=== PATIENT | male | born 1935 | race Caucasian/White ===

== ENCOUNTER 2018-04-24 16:15 | Inpatient (IN) ==
--- NOTE | 2018-04-24 18:25 | ED ---
HPI General Chief Complaint: Psychiatric Symptoms Stated Complaint: BLAYNE CROWE/KATHRYN SENT Time Seen by Provider: 04/24/18 17:51 Source: patient and old records reviewed Mode of arrival: ambulatory Limitations: no limitations History of Present Illness HPI Narrative: Patient is an 82-year-old male presenting voluntarily to the emergency department for psychiatric evaluation. Patient has a history of bipolar disorder, he was sent in by his primary doctor. Patient has been manic for some time. Per the notes sent from his doctor's office patient went to the office singing and talking nonstop about how he did not know if his sister was alive or . Patient then said he told her to get to the hospital. Patient was rambling and a neurologist that is not easily redirected. Patient presented voluntarily on the advice of his psychiatrist. Patient freely admits that he is bipolar and is currently manic. He has no physical complaints at this time. He denies any suicidal homicidal ideations, he further denies any hallucinations both visual and auditory. 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 He told me not to worry about his blood pressure or medical history other than his bipolar disorder. Patient is cooperative and pleasant. Related Data Home Medications Medication Instructions Recorded Confirmed nitroglycerin 0.4 mg SUBLINGUAL Q5-15M PRN 04/24/18 04/24/18 zoster vaccine live (PF) [Zostavax 04/24/18 (PF)] Previous Rx's Medication Instructions Recorded amlodipine 5 mg PO DAILY #30 tab 04/27/18 atorvastatin 80 mg PO DAILY #30 tab 04/27/18 carbamazepine 300 mg PO DIRECTED #90 tab 04/27/18 carvedilol 12.5 mg PO BID #60 tab 04/27/18 cyanocobalamin (vitamin B-12) 1,000 mcg PO DAILY #30 tab 04/27/18 [Vitamin B-12] lisinopril 20 mg PO DAILY #30 tab 04/27/18 pantoprazole 40 mg PO DAILY #30 tab 04/27/18 spironolactone 25 mg PO DAILY #30 tab 04/27/18 Allergies Allergy/AdvReac Type Severity Reaction Status Date / Time mold Allergy Unknown UNKNOWN Verified 04/24/18 17:42 Review of Systems ROS: all other systems reviewed are negative PMFSH History History Provided By: Medical Record Medical History Medical History GERD (gastroesophageal reflux disease) (Acute) Hyperlipidemia (Acute) Hypertension (Acute) Seizure (Acute) Family History Family History Other Family history non-contributory Family history normal Social History Social History Substance History: No History of Abuse Second Hand Smoke Exposure: No Smoking Status: Former smoker Tobacco Type: Cigarettes How Often Do You Have a Drink Containing Alcohol: Monthly or less Hx Recent Travel: No Exam Narrative Exam Narrative: GENERAL: Overweight, well-developed, alert pleasant elderly male. Presenting in no acute distress. SKIN: Focused skin assessment warm/dry. HEAD: Atraumatic. Normocephalic. EYES: Pupils equal and round. No scleral icterus. No injection or drainage. ENT: No nasal bleeding or discharge. Mucous membranes pink and moist. NECK: Trachea midline. No JVD. CARDIOVASCULAR: Regular rate and rhythm. No murmur appreciated. RESPIRATORY: No accessory muscle use. Clear to auscultation. Breath sounds equal bilaterally. GASTROINTESTINAL: Abdomen soft, non-tender, nondistended. Hepatic and splenic margins not palpable. MUSCULOSKELETAL: No obvious deformities. No clubbing. No cyanosis. No edema. NEUROLOGICAL: Awake and alert. No obvious cranial nerve deficits. Motor grossly within normal limits. Normal speech. PSYCHIATRIC: Appropriate mood and affect; insight and judgment normal. Course Initial Documented Vital Signs Temperature 98.0 F 04/24/18 17:04 Pulse Rate 85 04/24/18 17:04 Respiratory Rate 16 04/24/18 17:04 Blood Pressure 135/105 H 04/24/18 17:04 Pulse Oximetry 94 L 04/24/18 17:04 Last Documented Vital Signs Temperature 98.3 F 04/27/18 05:46 Pulse Rate 75 04/27/18 05:46 Respiratory Rate 16 04/27/18 05:46 Blood Pressure 136/65 04/27/18 05:46 Pulse Oximetry 90 L 04/27/18 05:46 Medical Decision Making [facility] Narrative Medical decision making narrative: Patient is a well-appearing elderly male presenting voluntarily for psychiatric evaluation due to manic episode. Patient's vital signs are stable, Mental health screening discussed with the patient. Psychiatric screen ordered. The patient has been medically cleared. Medical Screen Exam Complete: Yes Emergency Medical Condition: Yes Differential Diagnosis Differential Diagnosis: Mood disorder versus psychosis versus metabolic abnormality versus other Medical Records Medical records reviewed: Yes I reviewed the patient's medical records. Lab Data Result diagrams: 04/24/18 18:39 04/25/18 06:55 Lab Results 04/24/18 04/24/18 04/24/18 Range/Units 18:39 18:39 18:39 WBC 8.0 (4.0-11.0) th/mm3 RBC 5.07 (4.50-5.90) mil/mm3 Hgb 15.0 (13.0-17.0) gm/dL Hct 45.1 (39.0-51.0) % MCV 88.9 (80.0-100.0) fL MCH 29.7 (27.0-34.0) pg MCHC 33.4 (32.0-36.0) % RDW 13.9 (11.6-17.2) % Plt Count 286 (150-450) th/mm3 MPV 8.6 (7.0-11.0) fL Neut % (Auto) 57.7 (16.0-70.0) % Lymph % (Auto) 25.3 (9.0-44.0) % Cotton % (Auto) 13.2 H (0.0-8.0) % Eos % (Auto) 2.8 (0.0-4.0) % Baso % (Auto) 1.0 (0.0-2.0) % Neut # (Auto) 4.6 (1.8-7.7) th/mm3 Lymph # (Auto) 2.0 (1.0-4.8) th/mm3 Cotton # (Auto) 1.1 H (0.0-0.9) th/mm3 Eos # (Auto) 0.2 (0.0-0.4) th/mm3 Baso # (Auto) 0.1 (0.0-0.2) th/mm3 WBC Differential . Differential Comment Auto diff final Sodium 139 (136-145) meq/L Potassium 4.4 (3.5-5.1) meq/L Chloride 104 (98-107) meq/L Carbon Dioxide 28.5 (21.0-32.0) meq/L Anion Gap 7 (5-15) meq/L BUN 17 (7-18) mg/dL Creatinine 1.23 (0.60-1.30) mg/dL Estimated GFR 57 L (>89) mL/min Random Glucose 95 (74-106) mg/dL Hemoglobin A1c (4.3-6.0) % Calcium 9.3 (8.5-10.1) mg/dL Total Bilirubin 0.3 (0.2-1.0) mg/dL AST 28 (15-37) U/L ALT 32 (12-78) U/L Alkaline Phosphatase 123 H (45-117) U/L Total Protein 7.4 (6.4-8.2) g/dL Albumin 3.7 (3.4-5.0) g/dL Triglycerides (42-150) mg/dL Cholesterol (120-200) mg/dL LDL Cholesterol, Calc (0-99) mg/dL HDL Cholesterol (40.0-60.0) mg/dL Cholesterol/HDL Ratio Ratio TSH 1.510 (0.358-3.740) uIU/mL Urine Color (Yellw/Straw) Urine Clarity (Clear) Urine pH (5.0-8.5) Ur Specific [place] (1.002-1.035) Urine Protein (Neg-Trace) mg/dL Urine Glucose (UA) (Negative) mg/dL Urine Ketones (Negative) mg/dL Urine Occult Blood (Negative) Urine Nitrate (Negative) Urine Bilirubin (Negative) Urine Urobilinogen (Less than 2) mg/dL Ur Leukocyte Esterase (Negative) Urine RBC (0-3) /hpf Urine WBC (0-5) /hpf Urine Mucus (Occasional) /lpf Micro UA Comment Ur Microscopic Review Urine Culture Comments Urine Opiates Screen (Neg) Ur Barbiturates Screen (Neg) Carbamazepine 4.2 (4.0-12.0) mcg/mL Ur Amphetamines Screen (Neg) U Benzodiazepines Scrn (Neg) Urine Cocaine Screen (Neg) U Cannabinoids Screen (Neg) Serum Alcohol Less than 3 (0-5) mg/dL 04/24/18 04/24/18 04/25/18 Range/Units 18:43 18:43 06:55 WBC (4.0-11.0) th/mm3 RBC (4.50-5.90) mil/mm3 Hgb (13.0-17.0) gm/dL Hct (39.0-51.0) % MCV (80.0-100.0) fL MCH (27.0-34.0) pg MCHC (32.0-36.0) % RDW (11.6-17.2) % Plt Count (150-450) th/mm3 MPV (7.0-11.0) fL Neut % (Auto) (16.0-70.0) % Lymph % (Auto) (9.0-44.0) % Cotton % (Auto) (0.0-8.0) % Eos % (Auto) (0.0-4.0) % Baso % (Auto) (0.0-2.0) % Neut # (Auto) (1.8-7.7) th/mm3 Lymph # (Auto) (1.0-4.8) th/mm3 Cotton # (Auto) (0.0-0.9) th/mm3 Eos # (Auto) (0.0-0.4) th/mm3 Baso # (Auto) (0.0-0.2) th/mm3 WBC Differential Differential Comment Sodium 139 (136-145) meq/L Potassium 4.2 (3.5-5.1) meq/L Chloride 105 (98-107) meq/L Carbon Dioxide 24.4 (21.0-32.0) meq/L Anion Gap 10 (5-15) meq/L BUN 14 (7-18) mg/dL Creatinine 1.03 (0.60-1.30) mg/dL Estimated GFR 69 L (>89) mL/min Random Glucose 116 H (74-106) mg/dL Hemoglobin A1c (4.3-6.0) % Calcium 8.9 (8.5-10.1) mg/dL Total Bilirubin 0.3 (0.2-1.0) mg/dL AST 33 (15-37) U/L ALT 33 (12-78) U/L Alkaline Phosphatase 127 H (45-117) U/L Total Protein 7.6 (6.4-8.2) g/dL Albumin 3.8 (3.4-5.0) g/dL Triglycerides 158 H (42-150) mg/dL Cholesterol 209 H (120-200) mg/dL LDL Cholesterol, Calc 130 H (0-99) mg/dL HDL Cholesterol 47.8 (40.0-60.0) mg/dL Cholesterol/HDL Ratio 4.37 Ratio TSH (0.358-3.740) uIU/mL Urine Color Yellow (Yellw/Straw) Urine Clarity Clear (Clear) Urine pH 6.0 (5.0-8.5) Ur Specific [place] 1.010 (1.002-1.035) Urine Protein Negative (Neg-Trace) mg/dL Urine Glucose (UA) Negative (Negative) mg/dL Urine Ketones Negative (Negative) mg/dL Urine Occult Blood Negative (Negative) Urine Nitrate Negative (Negative) Urine Bilirubin Negative (Negative) Urine Urobilinogen Less than 2 (Less than 2) mg/dL Ur Leukocyte Esterase Negative (Negative) Urine RBC Less than 1 (0-3) /hpf Urine WBC Less than 1 (0-5) /hpf Urine Mucus Few H (Occasional) /lpf Micro UA Comment Culture not ind Ur Microscopic Review Not Reportable Urine Culture Comments Culture not ind Urine Opiates Screen Neg (Neg) Ur Barbiturates Screen Neg (Neg) Carbamazepine (4.0-12.0) mcg/mL Ur Amphetamines Screen Neg (Neg) U Benzodiazepines Scrn Neg (Neg) Urine Cocaine Screen Neg (Neg) U Cannabinoids Screen Pos H (Neg) Serum Alcohol (0-5) mg/dL 04/25/18 04/26/18 Range/Units 06:55 04:46 WBC (4.0-11.0) th/mm3 RBC (4.50-5.90) mil/mm3 Hgb (13.0-17.0) gm/dL Hct (39.0-51.0) % MCV (80.0-100.0) fL MCH (27.0-34.0) pg MCHC (32.0-36.0) % RDW (11.6-17.2) % Plt Count (150-450) th/mm3 MPV (7.0-11.0) fL Neut % (Auto) (16.0-70.0) % Lymph % (Auto) (9.0-44.0) % Cotton % (Auto) (0.0-8.0) % Eos % (Auto) (0.0-4.0) % Baso % (Auto) (0.0-2.0) % Neut # (Auto) (1.8-7.7) th/mm3 Lymph # (Auto) (1.0-4.8) th/mm3 Cotton # (Auto) (0.0-0.9) th/mm3 Eos # (Auto) (0.0-0.4) th/mm3 Baso # (Auto) (0.0-0.2) th/mm3 WBC Differential Differential Comment Sodium (136-145) meq/L Potassium (3.5-5.1) meq/L Chloride (98-107) meq/L Carbon Dioxide (21.0-32.0) meq/L Anion Gap (5-15) meq/L BUN (7-18) mg/dL Creatinine (0.60-1.30) mg/dL Estimated GFR (>89) mL/min Random Glucose (74-106) mg/dL Hemoglobin A1c 6.3 H (4.3-6.0) % Calcium (8.5-10.1) mg/dL Total Bilirubin (0.2-1.0) mg/dL AST (15-37) U/L ALT (12-78) U/L Alkaline Phosphatase (45-117) U/L Total Protein (6.4-8.2) g/dL Albumin (3.4-5.0) g/dL Triglycerides (42-150) mg/dL Cholesterol (120-200) mg/dL LDL Cholesterol, Calc (0-99) mg/dL HDL Cholesterol (40.0-60.0) mg/dL Cholesterol/HDL Ratio Ratio TSH (0.358-3.740) uIU/mL Urine Color (Yellw/Straw) Urine Clarity (Clear) Urine pH (5.0-8.5) Ur Specific [place] (1.002-1.035) Urine Protein (Neg-Trace) mg/dL Urine Glucose (UA) (Negative) mg/dL Urine Ketones (Negative) mg/dL Urine Occult Blood (Negative) Urine Nitrate (Negative) Urine Bilirubin (Negative) Urine Urobilinogen (Less than 2) mg/dL Ur Leukocyte Esterase (Negative) Urine RBC (0-3) /hpf Urine WBC (0-5) /hpf Urine Mucus (Occasional) /lpf Micro UA Comment Ur Microscopic Review Urine Culture Comments Urine Opiates Screen (Neg) Ur Barbiturates Screen (Neg) Carbamazepine 5.3 (4.0-12.0) mcg/mL Ur Amphetamines Screen (Neg) U Benzodiazepines Scrn (Neg) Urine Cocaine Screen (Neg) U Cannabinoids Screen (Neg) Serum Alcohol (0-5) mg/dL Discharge Plan Discharge Disposition Patient Disposition: 01 Discharge Home Discharge Condition Condition: Fair Discharge Order Discharge Orders: Discharge Order (Routine); Ordered 04/27/18 Ordered By: Benson Holcomb Discharge Details Anticipated Discharge Date: 04/27/18 Physicians Team ED Provider: Marcial Suárez ED Midlevel Provider: Shruti Quintero Primary Care Provider: Ingrid Chapa Attending Provider: Benson Holcomb Status ED Status: Left Department Discharge Information Discharge Date/Time: 04/24/18 21:06
[2018-04-24 18:58] LABS: Baso # (Auto) 0.1 th/mm3 (0.0-0.2); Eos # (Auto) 0.2 th/mm3 (0.0-0.4); Eos % (Auto) 2.8 % (0.0-4.0); Hematocrit 45.1 % (39.0-51.0); Lymph % (Auto) 25.3 % (9.0-44.0); Mean Corpuscular HGB Conc 33.4 % (32.0-36.0); Mean Corpuscular Hemoglobin 29.7 pg (27.0-34.0); Mean Corpuscular Volume 88.9 fL (80.0-100.0); Mean Platelet Volume 8.6 fL (7.0-11.0); Mono # (Auto) 1.1 th/mm3 (0.0-0.9); Mono % (Auto) 13.2 % (0.0-8.0); Neut # (Auto) 4.6 th/mm3 (1.8-7.7); Neut % (Auto) 57.7 % (16.0-70.0); Platelet Count 286 th/mm3 (150-450); Red Blood Count 5.07 mil/mm3 (4.50-5.90); Red Cell Distribution Width 13.9 % (11.6-17.2)
[2018-04-24 19:07] LABS: Bilirubin,Urine Negative (Negative); Clarity,Urine Clear (Clear); Color,Urine Yellow (Yellw/Straw); Glucose,Urine (UA) Negative (Negative); Leukocyte Esterase,Urine Negative (Negative); Mucus,Urine Few /lpf (Occasional); Nitrite,Urine Negative (Negative)
[2018-04-24 19:23] LABS: Albumin 3.7 g/dL (3.4-5.0); Anion Gap 7 meq/L (5-15); Aspartate Aminotransferase 28 U/L (15-37); Blood Urea Nitrogen 17 mg/dL (7-18); Calcium 9.3 mg/dL (8.5-10.1); Carbon Dioxide 28.5 meq/L (21.0-32.0); Chloride 104 meq/L (98-107); Glomerular Filtration Rate 57 mL/min (>89); Glucose,Random 95 mg/dL (74-106); Potassium 4.4 meq/L (3.5-5.1); Sodium 139 meq/L (136-145)
[2018-04-24 19:34] LABS: Alanine Aminotransferase 32 U/L (12-78); Alkaline Phosphatase 123 U/L (45-117); Total Protein 7.4 g/dL (6.4-8.2)
[2018-04-24] MEDS ORDERED: Aluminum/Magnesium/Simethacone Susp 30 ML UDC PO PRN (20:14)
[2018-04-24] MEDS ORDERED: Melatonin 5 MG Tablet PO PRN (20:14)
[2018-04-24] MEDS: Carvedilol 12.5 MG Tablet PO SCH (23:27)
[2018-04-24] MEDS: carBAMazepine 200 MG Tablet PO SCH (23:27)
[2018-04-25 00:30] LABS: Amphetamine Screen,Urine Neg (Neg); Barbiturate Screen,Urine Neg (Neg); Cannabinoid Screen,Urine Pos (Neg); Cocaine Screen,Urine Neg (Neg)
[2018-04-25 00:36] LABS: Opiate Screen,Urine Neg (Neg)
[2018-04-25 07:42] LABS: Albumin 3.8 g/dL (3.4-5.0); Anion Gap 10 meq/L (5-15); Aspartate Aminotransferase 33 U/L (15-37); Blood Urea Nitrogen 14 mg/dL (7-18); Calcium 8.9 mg/dL (8.5-10.1); Carbon Dioxide 24.4 meq/L (21.0-32.0); Chloride 105 meq/L (98-107); Glomerular Filtration Rate 69 mL/min (>89); Glucose,Random 116 mg/dL (74-106); Potassium 4.2 meq/L (3.5-5.1); Sodium 139 meq/L (136-145)
[2018-04-25 07:43] LABS: Cholesterol 209 mg/dL (120-200); Triglycerides 158 mg/dL (42-150)
[2018-04-25 07:47] LABS: Alanine Aminotransferase 33 U/L (12-78); Alkaline Phosphatase 127 U/L (45-117); Chol/HDL Ratio 4.37 Ratio; HDL Cholesterol 47.8 mg/dL (40.0-60.0); LDL Cholesterol,Calculated 130 mg/dL (0-99); Total Protein 7.6 g/dL (6.4-8.2)
[2018-04-25] MEDS: Carvedilol 12.5 MG Tablet PO SCH ×2 (08:27→21:02)
[2018-04-25] MEDS: Spironolactone 25 MG Tablet PO SCH (08:27)
[2018-04-25] MEDS: carBAMazepine 200 MG Tablet PO SCH ×2 (08:27→21:02)
[2018-04-25] MEDS: Lisinopril 20 MG Tablet PO SCH (08:27)
[2018-04-25] MEDS: amLODIPine 5 MG Tablet PO SCH (08:27)
[2018-04-25] MEDS ORDERED: Aluminum/Magnesium/Simethacone Susp 30 ML UDC PO PRN ×2 (13:08→13:16)
[2018-04-25] MEDS ORDERED: Bisacodyl 10 MG Supp RECTAL PRN (13:16)
--- NOTE | 2018-04-25 13:27 | P.HPPSY ---
Provisional Diagnosis Admission Date: April 24, 2018 20:13 Avilla I.: Bipolar disorder most recent episode mixed without psychosis Competence Certification of Person's Competence To Provide Express and Informed Consent I have personally examined Roque Cardoza, a person being served at [facility] on, April 25, 2018 1320. Express and informed consent means consent voluntarily given in writing, by a competent person, after sufficient explanation and disclosure of the subject matter involved to enable the person to make a knowing and willful decision without any element of force, fraud, deceit, duress, or other form of constraint or coercion. This person is 18 years of age or older, is not now known to be incompetent to consent to treatment with a guardian advocate, and does not have a health care surrogate or proxy currently making medical treatment decisions. I have found this person to be one of the following: [xxx] Competent to provide express and informed consent, as defined above, for voluntary admission to this facility and is competent to provide express and informed consent for treatment. He/she has the consistent capacity to make well reasoned, willful, and knowing decisions concerning his or her medical or mental health treatment. The person fully and consistently understands the purpose of the admission for examination/placement and is fully capable of personally exercising all rights assured under [place] Incompetent to provide express and informed consent to voluntary admission, and this is incompetent to provide express and informed consent to treatment. The person must be transferred to involuntary status and a petition for a guardian advocate filed with the Circuit Court. [] Refusing to provide express and informed consent to voluntary admission but is competent to provide express and informed consent for treatment. The person must be discharged or transferred to involuntary status. Form shall be completed within 24 hours of a person's arrival at the receiving facility and filed in the clinical record of each person: 1. Admitted on a voluntary basis 2. Permitted to provide express and informed consent to his/her own treatment 3. Allowed to transfer from involuntary to voluntary status 4. Prior to permitting a person to consent to his or her own treatment after having been previously found incompetent to consent to treatment. History of Present Illness Capacity: Has capacity History of Present Illness: Patient is an 82-year-old white male patient with [facility] seeing Dr. Julio Oneill as an outpatient clinician. It appears patient has carried a diagnosis of bipolar disorder most recently stressed when he thought that his only living sibling and a heart attack and was dying. This appears to have triggered a mixed episode of racing thoughts rapid pressured speech but also depression and anxiety. This occurred about 4 days ago. He states he has been compliant with his medications. He denies any alcohol use related to this fluid does acknowledge use of marijuana. Dr. Oneill did recommend that the patient rechecked. At [place]. Patient came here voluntarily drove himself here was assessed in the ED. Patient does denies suicidality homicidality voice or visions. He says was diagnosed bipolar in his early 30s he has had 5- 6 hospitalizations since then most recent being a number of years ago. There is some family history of bipolar disorder. He states otherwise his family is healthy. He denies any physical or sexual abuse. He states he is of a sibship of 8 there are 2 surviving himself and his sister. He has been 3 times and has 2 children. He lives by himself. 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 Tegretol level drawn yesterday at 6:40 PM was 4.2. We will recheck level in a.m. At this time patient does meet criteria for further assessment on a voluntary basis. We will recheck his Tegretol blood level of the morning otherwise we will continue medications no change. Hopeless be fairly short stay and can return to his apartment with follow-up outpatient [facility] - Inpatient Certification I certify that the inpatient services were ordered in accordance with Medicare regulations governing the order. This includes certification that hospital inpatient services are reasonable and necessary and in the case of services not specified as inpatient-only under 42 CFR 419.22(n), that they are appropriately provided as inpatient services in accordance to with the 2-midnight benchmark under 43 CFR 412.3(e) I certify that inpatient psychiatric hospital services are medically necessary. Evaluation and treatment and/or diagnostic testing are expected to improve the patient's condition. The patient needs on a daily basis, active treatment furnished directly by or requiring the supervision of inpatient psychiatric facility personnel. Estimated Total Length of Stay (Days): 7 Plans for Post Hospital Care: Not yet determined Review of Systems All other systems reviewed negative except as stated in HPI [facility] - History History Provided By: Patient - Medical History Medical History: Medical History (Last Reviewed 04/25/18 @ 08:06 by Doe Gabriel) GERD (gastroesophageal reflux disease) Hyperlipidemia Hypertension Seizure - Family History Family History: Family History (Last Updated 04/25/18 @ 13:29 by Benson Holcomb MD) Other Family history non-contributory Family history normal - Social History I have reviewed the patient's Social History: Yes - Tobacco History Second Hand Smoke Exposure: No Tobacco Use In Past 30 Days: No Smoking Status: Former smoker Tobacco Type: Cigarettes - Alcohol History How Often Do You Have a Drink Containing Alcohol: Monthly or less - Substance Use History Substance History: No History of Abuse - Travel History History of Recent Travel: No - Immunization History Tetanus Immunization: <5 Years Hx Influenza Vaccine This Season: Yes Quality Measures - Psychiatric History Psychological trauma history: Patient denies Violence risk to others in the last 6 months: Low Violence risk to self in the last 6 months: Low - Substance Abuse History Drug or alcohol use in the past 12 months: Patient regular marijuana user - Patient Strengths Patient's strengths (minimum of 2): Patient verbal able access healthcare Medications and Allergies Active Medications: Active Medications Acetaminophen (Tylenol) 650 mg PO Q4H PRN PRN Reason: Pain 1-5 or Temp >101F Al Hydrox/Mg Hydrox/Simethicone (Mag-Al Plus Susp Liq) 30 ml PO Q6H PRN PRN Reason: DYSPEPSIA Al Hydrox/Mg Hydrox/Simethicone (Mag-Al Plus Susp Liq) 30 ml PO Q6H PRN PRN Reason: DYSPEPSIA Al Hydrox/Mg Hydrox/Simethicone (Mag-Al Plus Susp Liq) 30 ml PO Q6H PRN PRN Reason: DYSPEPSIA Al Hydroxide/Mg Hydroxide (Milk Of Magnesia Liq) 30 ml PO Q12H PRN PRN Reason: Mild Constipation Al Hydroxide/Mg Hydroxide (Milk Of Magnesia Liq) 30 ml PO Q12H PRN PRN Reason: Mild Constipation Al Hydroxide/Mg Hydroxide (Milk Of Magnesia Liq) 30 ml PO Q12H PRN PRN Reason: Mild Constipation Amlodipine Besylate (Norvasc) 5 mg PO DAILY [facility] Last Admin: 04/25/18 08:27 Dose: 5 mg Atorvastatin Calcium (Lipitor) 80 mg PO DAILY [facility] Last Admin: 04/25/18 08:27 Dose: 80 mg Bisacodyl (Dulcolax Supp) 10 mg RECTAL DAILY PRN PRN Reason: SEVERE CONSITIPATION Carbamazepine (Tegretol) 200 mg PO BID [facility] Last Admin: 04/25/18 08:27 Dose: 200 mg Carvedilol (Coreg) 12.5 mg PO BID [facility] Last Admin: 04/25/18 08:27 Dose: 12.5 mg Cyanocobalamin (Vitamin B12) 1,000 mcg PO DAILY [facility] Last Admin: 04/25/18 08:27 Dose: 1,000 mcg Diphenhydramine HCl (Benadryl) 50 mg PO HS PRN PRN Reason: INSOMNIA Hydroxyzine HCl (Atarax) 50 mg PO Q6H PRN PRN Reason: ANXIETY Lactulose (Lactulose Liq) 30 ml PO DAILY PRN PRN Reason: SEVERE CONSITIPATION Lisinopril (Prinivil) 20 mg PO DAILY [facility] Last Admin: 04/25/18 08:27 Dose: 20 mg Nicotine (Habitrol 14 Mg Patch.24 Hr) 1 patch T-DERMAL DAILY PRN PRN Reason: nicotine craving Nitroglycerin (Nitrostat Sl) 0.4 mg SL Q5M PRN PRN Reason: CHEST PAIN Pantoprazole Sodium (Protonix) 40 mg PO DAILY [facility] Last Admin: 04/25/18 08:27 Dose: 40 mg Patch Removal (Remove Old Patch) 1 each T-DERMAL DAILY [facility] Last Admin: 04/25/18 08:28 Dose: 1 each Senna/Docusate Sodium (Corine-Colace) 1 tab PO BID [facility] Sennosides (Senokot) 17.2 mg PO Q12H PRN PRN Reason: Moderate Constipation Spironolactone (Aldactone) 25 mg PO DAILY [facility] Last Admin: 04/25/18 08:27 Dose: 25 mg Allergies Allergy/AdvReac Type Severity Reaction Status Date / Time mold Allergy Unknown UNKNOWN Verified 04/24/18 17:42 Home Medications Medication Instructions Recorded Confirmed Type amlodipine 5 mg PO DAILY 04/24/18 04/24/18 History [id number] 1 tab PO TID PRN 04/24/18 04/24/18 History [Excedrin Extra Strength] atorvastatin 80 mg PO DAILY 04/24/18 04/24/18 History carbamazepine 200 mg PO BID 04/24/18 04/24/18 History carvedilol 12.5 mg PO BID 04/24/18 04/24/18 History cyanocobalamin-cobamamide [B-12 1,000 mcg SUBLINGUAL DAILY 04/24/18 04/24/18 History Plus] lisinopril 20 mg PO DAILY 04/24/18 04/24/18 History nitroglycerin 0.4 mg SUBLINGUAL Q5-15M PRN 04/24/18 04/24/18 History pantoprazole 40 mg PO DAILY 04/24/18 04/24/18 History spironolactone 25 mg PO DAILY 04/24/18 04/24/18 History zoster vaccine live (PF) [Zostavax 04/24/18 History (PF)] Results - Labs CBC & Chem 7: 04/24/18 18:39 04/25/18 06:55 Labs: Laboratory Results - last 24 hr 04/24/18 04/24/18 04/24/18 18:39 18:39 18:39 WBC 8.0 RBC 5.07 Hgb 15.0 Hct 45.1 MCV 88.9 MCH 29.7 MCHC 33.4 RDW 13.9 Plt Count 286 MPV 8.6 Neut % (Auto) 57.7 Lymph % (Auto) 25.3 [place] % (Auto) 13.2 H Eos % (Auto) 2.8 Baso % (Auto) 1.0 Neut # (Auto) 4.6 Lymph # (Auto) 2.0 [place] # (Auto) 1.1 H Eos # (Auto) 0.2 Baso # (Auto) 0.1 WBC Differential . Differential Comment Auto diff final Sodium 139 Potassium 4.4 Chloride 104 Carbon Dioxide 28.5 Anion Gap 7 BUN 17 Creatinine 1.23 Estimated GFR 57 L Random Glucose 95 Calcium 9.3 Total Bilirubin 0.3 AST 28 ALT 32 Alkaline Phosphatase 123 H Total Protein 7.4 Albumin 3.7 Triglycerides Cholesterol LDL Cholesterol, Calc HDL Cholesterol Cholesterol/HDL Ratio TSH 1.510 Urine Color Urine Clarity Urine pH Ur Specific [place] Urine Protein Urine Glucose (UA) Urine Ketones Urine Occult Blood Urine Nitrate Urine Bilirubin Urine Urobilinogen Ur Leukocyte Esterase Urine RBC Urine WBC Urine Mucus Micro UA Comment Ur Microscopic Review Urine Culture Comments Urine Opiates Screen Ur Barbiturates Screen Carbamazepine 4.2 Ur Amphetamines Screen U Benzodiazepines Scrn Urine Cocaine Screen U Cannabinoids Screen Serum Alcohol Less than 3 04/24/18 04/24/18 04/25/18 18:43 18:43 06:55 WBC RBC Hgb Hct MCV MCH MCHC RDW Plt Count MPV Neut % (Auto) Lymph % (Auto) [place] % (Auto) Eos % (Auto) Baso % (Auto) Neut # (Auto) Lymph # (Auto) [place] # (Auto) Eos # (Auto) Baso # (Auto) WBC Differential Differential Comment Sodium 139 Potassium 4.2 Chloride 105 Carbon Dioxide 24.4 Anion Gap 10 BUN 14 Creatinine 1.03 Estimated GFR 69 L Random Glucose 116 H Calcium 8.9 Total Bilirubin 0.3 AST 33 ALT 33 Alkaline Phosphatase 127 H Total Protein 7.6 Albumin 3.8 Triglycerides 158 H Cholesterol 209 H LDL Cholesterol, Calc 130 H HDL Cholesterol 47.8 Cholesterol/HDL Ratio 4.37 TSH Urine Color Yellow Urine Clarity Clear Urine pH 6.0 Ur Specific [place] 1.010 Urine Protein Negative Urine Glucose (UA) Negative Urine Ketones Negative Urine Occult Blood Negative Urine Nitrate Negative Urine Bilirubin Negative Urine Urobilinogen Less than 2 Ur Leukocyte Esterase Negative Urine RBC Less than 1 Urine WBC Less than 1 Urine Mucus Few H Micro UA Comment Culture not ind Ur Microscopic Review Not Reportable Urine Culture Comments Culture not ind Urine Opiates Screen Neg Ur Barbiturates Screen Neg Carbamazepine Ur Amphetamines Screen Neg U Benzodiazepines Scrn Neg Urine Cocaine Screen Neg U Cannabinoids Screen Pos H Serum Alcohol Exam Vital signs: Vital Signs 04/24/18 17:04 04/24/18 17:35 04/24/18 20:48 Temperature 98.0 F 98.0 F Pulse Rate 85 85 97 H Respiratory Rate 16 18 Blood Pressure 135/105 H 135/105 H 121/57 L Pulse Oximetry 94 L 94 L 04/24/18 21:05 04/25/18 05:54 04/25/18 06:00 Temperature 98.6 F 97.8 F Pulse Rate 97 H 97 H Respiratory Rate 20 17 Blood Pressure 121/57 L 140/95 H Pulse Oximetry 94 L 94 L Intake & Output 04/24/18 04/25/18 04/25/18 18:59 06:59 18:59 Weight 94.347 kg 93.7 kg Other: Weight On Admission 93.7 kg Narrative: Patient sitting in its of his bed in no acute distress he is in no respiratory distress, no complaints of chest pain or abdominal pain patient using a walker is able to move all 4 extremities but legs appears somewhat weak and shaky Mental Status Examination Appearance: Appropriate Consciousness: Alert Orientation: x4 Motor Activity: Other (Patient uses walker legs appears somewhat unstable) Speech: Unremarkable, Pressured Language: Adequate Fund of Knowledge: Adequate Attention and Concentration: Adequate Memory: Unremarkable Mood: Other (Euthymic to mildly dysphoric) Affect: Other (Good range and intensity) Thought Process & Associations: Intact Thought Content: Appropriate Hallucination Type: None Delusion Type: None Suicidal Ideation: No Suicidal Plan: No Suicidal Intention: No Homicidal Ideation: No Homicidal Plan: No Homicidal Intention: No Insight: Adequate Judgment: Adequate Assessment and Plan - Assessment (1) Bipolar I disorder, most recent episode mixed Code(s): F31.60 - Bipolar disorder, current episode mixed, unspecified Status : Acute - Plan Plan: Estimated LOS: [] days At this time patient meets criteria for further observation and assessment we will recheck his Tegretol blood level in a.m. and adjust dose accordingly we have [facility] hospitalist also consult with us to monitor his medical needs condition hopeless be fairly short stay and can return to the community and follow-up outpatient [facility] Justification for Continued Inpatient Stay: At this time patient would decompensate a place to the lower level of care Discharge Planning: To be determined Request Healthcare Surrogate/Guardian Advocate?: No
[2018-04-25 16:39] LABS: Hemoglobin A1c 6.3 % (4.3-6.0)
[2018-04-25] MEDS: Acetaminophen 325 MG Tablet PO PRN (19:49)
[2018-04-25] MEDS: Senna/Docusate Sodium 8.6/50 MG Tablet PO SCH (21:02)
[2018-04-26] MEDS: Acetaminophen 325 MG Tablet PO PRN (03:52)
[2018-04-26 04:58] VITALS: RESP 16
[2018-04-26] MEDS: Lisinopril 20 MG Tablet PO SCH (08:47)
[2018-04-26] MEDS: carBAMazepine 200 MG Tablet PO SCH (08:47)
[2018-04-26] MEDS: Senna/Docusate Sodium 8.6/50 MG Tablet PO SCH ×2 (08:47→20:44)
[2018-04-26] MEDS: Spironolactone 25 MG Tablet PO SCH (08:47)
[2018-04-26] MEDS: Carvedilol 12.5 MG Tablet PO SCH ×2 (08:48→20:45)
[2018-04-26] MEDS: amLODIPine 5 MG Tablet PO SCH (08:48)
--- NOTE | 2018-04-26 11:50 | P.PNPSY ---
Subjective Remarks: Patient seen and boland with nurse Radha, chart reviewed, patient compliant medication, patient continues with mild rapid pressured speech acknowledging being somewhat elevated but enjoying it. He still has insight into the risks involved with trying to keep a somewhat hypomanic state stable Tegretol level drawn this a.m. is 5.3 and 200 mg twice daily. Will increase at bedtime dose today to 300 mg. Consider discharge tomorrow with requisition for Tegretol level first part of next week to follow-up that week with Dr. Oneill through [facility] Review of Systems All other systems reviewed negative except as stated in HPI Mental Status Examination Appearance: Appropriate Consciousness: Alert Orientation: x4 Motor Activity: Other (Patient uses walker legs appears somewhat unstable) Speech: Unremarkable, Pressured Language: Adequate Fund of Knowledge: Adequate Attention and Concentration: Adequate Memory: Unremarkable Mood: Other (Euthymic to mildly dysphoric) Affect: Other (Good range and intensity) Thought Process & Associations: Intact Thought Content: Appropriate Hallucination Type: None Delusion Type: None Suicidal Ideation: No Suicidal Plan: No Suicidal Intention: No Homicidal Ideation: No Homicidal Plan: No Homicidal Intention: No Insight: Adequate Judgment: Adequate Assessment and Plan - Assessment (1) Bipolar I disorder, most recent episode mixed Code(s): F31.60 - Bipolar disorder, current episode mixed, unspecified Status : Acute - Plan Plan: Patient's Tegretol level is somewhat low we will increase dose to 200 mg a.m. 300 mg patient denies suicidality homicidality voice or visions consider discharge tomorrow with lab follow-up next week along with follow-up psychiatric services Justification for Continued Inpatient Stay: This time patient would decompensate if placed in a lower level of care Discharge Planning: Discharge to home Request Healthcare Surrogate/Guardian Advocate?: No
[2018-04-26] MEDS ORDERED: carBAMazepine 200 MG Tablet PO SCH (21:00)
[2018-04-27 05:48] VITALS: BP 136/65; PULSE 75; TEMP 98.3; O2SAT 90
[2018-04-27] MEDS ORDERED: carBAMazepine 200 MG Tablet PO SCH (09:00)
[2018-04-27] MEDS: Spironolactone 25 MG Tablet PO SCH (11:00)
[2018-04-27] MEDS: Senna/Docusate Sodium 8.6/50 MG Tablet PO SCH (11:00)
[2018-04-27] MEDS: amLODIPine 5 MG Tablet PO SCH (11:00)
[2018-04-27] MEDS: Lisinopril 20 MG Tablet PO SCH (11:00)
[2018-04-27] MEDS: Carvedilol 12.5 MG Tablet PO SCH (11:00)
--- NOTE | 2018-04-27 14:30 | P.DSPSY ---
Psychiatry Discharge Summary Inpatient Psychiatric care?: Yes Advance Directives: No Mental Health Advance Directive: No Health Care Proxy: No - Admission Admission Date: April 24, 2018 20:13 - Admission Diagnosis (1) Bipolar I disorder, most recent episode mixed Code(s): F31.60 - Bipolar disorder, current episode mixed, unspecified Brief History: Patient is an 82-year-old white male patient with [facility] seeing Dr. Julio Oneill as an outpatient clinician. It appears patient has carried a diagnosis of bipolar disorder most recently stressed when he thought that his only living sibling and a heart attack and was dying. This appears to have triggered a mixed episode of racing thoughts rapid pressured speech but also depression and anxiety. This occurred about 4 days ago. He states he has been compliant with his medications. He denies any alcohol use related to this fluid does acknowledge use of marijuana. Dr. Oneill did recommend that the patient rechecked. At [place]. Patient came here voluntarily drove himself here was assessed in the ED. Patient does denies suicidality homicidality voice or visions. He says was diagnosed bipolar in his early 30s he has had 5- 6 hospitalizations since then most recent being a number of years ago. There is some family history of bipolar disorder. He states otherwise his family is healthy. He denies any physical or sexual abuse. He states he is of a sibship of 8 there are 2 surviving himself and his sister. He has been 3 times and has 2 children. He lives by himself. 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 Tegretol level drawn yesterday at 6:40 PM was 4.2. We will recheck level in a.m. At this time patient does meet criteria for further assessment on a voluntary basis. We will recheck his Tegretol blood level of the morning otherwise we will continue medications no change. Hopeless be fairly short stay and can return to his apartment with follow-up outpatient [facility] Tobacco Use In Past 30 Days: No How Often Do You Have a Drink Containing Alcohol: Monthly or less Hospital Course: Patient's hospital course was uneventful, he showed cooperation and compliance with medication from day 1 his moderate bhavani slowly diminished is intrusiveness and evasiveness and rapid pressured speech are also diminished today he is calm cooperative continues mildly hypomanic his speech rate and rhythm are decreased he denies suicidality homicidality voices or visions. Patient is showing insight into his disease has been compliant with his medications. We have been adjusting his Tegretol. At the present time patient longer meets [place] criteria. He does wish to be discharged today. Thus patient will be discharged today to follow up with Dr. Oneill through [facility] next week and will also order Tegretol blood level for early next week as an outpatient he also strongly encouraged abstinence and refraining from marijuana - Discharge Discharge Date: 04/27/18 - Discharge Diagnosis (1) Bipolar I disorder, most recent episode mixed Diagnosis: Principal Code(s): F31.60 - Bipolar disorder, current episode mixed, unspecified Status : Acute Discharge Disposition: Home - Discharge Instructions Discharge Diet: Regular Diet Activities You Can Perform: Regular- No Restrictions - Discharge Time > 30 minutes Mental Status Examination Appearance: Appropriate Consciousness: Alert Orientation: x4 Motor Activity: Other (Patient uses walker legs appears somewhat unstable) Speech: Unremarkable, Pressured Language: Adequate Fund of Knowledge: Adequate Attention and Concentration: Adequate Memory: Unremarkable Mood: Other (Euthymic to mildly dysphoric) Affect: Other (Good range and intensity) Thought Process & Associations: Intact Thought Content: Appropriate Hallucination Type: None Delusion Type: None Suicidal Ideation: No Suicidal Plan: No Suicidal Intention: No Homicidal Ideation: No Homicidal Plan: No Homicidal Intention: No Insight: Adequate Judgment: Adequate Discharge/Advance Care Plan - Results Vital Signs: Last Vital Signs Temp 98.3 F 04/27/18 05:46 Pulse 75 04/27/18 05:46 Resp 16 04/27/18 05:46 BP 136/65 04/27/18 05:46 Pulse Ox 90 L 04/27/18 05:46 Lab Results: Laboratory Results Hemoglobin A1c 6.3 % (4.3-6.0) H 04/25/18 06:55 Triglycerides 158 mg/dL (42-150) H 04/25/18 06:55 Cholesterol 209 mg/dL (120-200) H 04/25/18 06:55 LDL Cholesterol, Calc 130 mg/dL (0-99) H 04/25/18 06:55 HDL Cholesterol 47.8 mg/dL (40.0-60.0) 04/25/18 06:55 TSH 1.510 uIU/mL (0.358-3.740) 04/24/18 18:39 Urine Culture Comments Culture not ind 04/24/18 18:43 Summary of Procedures: None done Pending Results: None - Medications Number of antipsychotic medications at discharge: 1 - Discharge Care Plan Goals to Promote Your Health: * To prevent worsening of your condition and complications * To maintain your health at the optimal level Directions to Meet Your Goals: Take your medications as prescribed Follow your dietary instruction Follow activity as directed Keep your appointments as scheduled Take your immunizations and boosters as scheduled If your symptoms worsen call your PCP, if no PCP go to Urgent Care Center or Emergency Room For 06/03 questions related to your inpatient stay or results of tests pending at discharge, please contact Dr. Benson Holcomb MD at Smoking is Dangerous to Your Health. Avoid second hand smoking
== END 2018-04-27 18:00 | disposition home or self-care (01) ==
LOC: NEPJ 16:15 → NEDA 20:13 → H260 21:05
PROVIDERS: ADMIT Psychiatry & Neurology Psychiatry; ATTEND Psychiatry & Neurology Psychiatry

== ENCOUNTER 2018-05-20 02:20 | Inpatient (IN) ==
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
[2018-05-20 03:14] LABS: Baso # (Auto) 0.1 th/mm3 (0.0-0.2); Baso % (Auto) 0.8 % (0.0-2.0); Eos # (Auto) 0.4 th/mm3 (0.0-0.4); Eos % (Auto) 4.9 % (0.0-4.0); Hematocrit 48.6 % (39.0-51.0); Hemoglobin 16.2 gm/dL (13.0-17.0); Lymph # (Auto) 1.9 th/mm3 (1.0-4.8); Lymph % (Auto) 24.8 % (9.0-44.0); Mean Corpuscular HGB Conc 33.2 % (32.0-36.0); Mean Corpuscular Hemoglobin 30.2 pg (27.0-34.0); Mean Corpuscular Volume 90.9 fL (80.0-100.0); Mean Platelet Volume 9.2 fL (7.0-11.0); Mono # (Auto) 1.1 th/mm3 (0.0-0.9); Mono % (Auto) 13.8 % (0.0-8.0); Neut # (Auto) 4.4 th/mm3 (1.8-7.7); Neut % (Auto) 55.7 % (16.0-70.0); Platelet Count 312 th/mm3 (150-450); Red Blood Count 5.35 mil/mm3 (4.50-5.90); Red Cell Distribution Width 14.1 % (11.6-17.2); White Blood Count 7.8 th/mm3 (4.0-11.0)
[2018-05-20 03:27] LABS: Alanine Aminotransferase 67 U/L (12-78); Albumin 3.7 g/dL (3.4-5.0); Anion Gap 10 meq/L (5-15); Aspartate Aminotransferase 52 U/L (15-37); Blood Urea Nitrogen 13 mg/dL (7-18); Calcium 9.1 mg/dL (8.5-10.1); Carbon Dioxide 26.2 meq/L (21.0-32.0); Chloride 107 meq/L (98-107); Glomerular Filtration Rate 66 mL/min (>89); Glucose,Random 108 mg/dL (74-106); Potassium 4.2 meq/L (3.5-5.1); Sodium 143 meq/L (136-145)
[2018-05-20 03:37] LABS: Alkaline Phosphatase 130 U/L (45-117); Total Protein 7.8 g/dL (6.4-8.2)
[2018-05-20] MEDS ORDERED: Haloperidol Inj 5 MG/ML Ampul IM ONE (04:48)
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
[2018-05-20] MEDS ORDERED: Aluminum/Magnesium/Simethacone Susp 30 ML UDC PO PRN (10:24)
[2018-05-20] MEDS ORDERED: Melatonin 5 MG Tablet PO PRN (10:24)
[2018-05-20] MEDS: Senna/Docusate Sodium 8.6/50 MG Tablet PO SCH (23:53)
[2018-05-21] MEDS ORDERED: Haloperidol Inj 5 MG/ML Ampul ONE (00:06)
[2018-05-21] MEDS ORDERED: Haloperidol Inj 5 MG/ML Ampul IM ONE (00:45)
[2018-05-21] MEDS: Senna/Docusate Sodium 8.6/50 MG Tablet PO SCH ×2 (08:46→20:45)
[2018-05-21 09:11] LABS: Potassium 3.9 meq/L (3.5-5.1)
[2018-05-21 09:15] LABS: Chol/HDL Ratio 3.31 Ratio; HDL Cholesterol 46.2 mg/dL (40.0-60.0)
--- NOTE | 2018-05-21 10:28 | P.HPPSY ---
Provisional Diagnosis Admission Date: May 20, 2018 10:25 [place] I.: Bipolar disorder most recent episode mixed with psychotic features Competence Certification of Person's Competence To Provide Express and Informed Consent I have personally examined Roque Cardoza, a person being served at [facility] on, May 21, 2018 1017. Express and informed consent means consent voluntarily given in writing, by a competent person, after sufficient explanation and disclosure of the subject matter involved to enable the person to make a knowing and willful decision without any element of force, fraud, deceit, duress, or other form of constraint or coercion. This person is 18 years of age or older, is not now known to be incompetent to consent to treatment with a guardian advocate, and does not have a health care surrogate or proxy currently making medical treatment decisions. I have found this person to be one of the following: [] Competent to provide express and informed consent, as defined above, for voluntary admission to this facility and is competent to provide express and informed consent for treatment. He/she has the consistent capacity to make well reasoned, willful, and knowing decisions concerning his or her medical or mental health treatment. The person fully and consistently understands the purpose of the admission for examination/placement and is fully capable of personally exercising all rights assured under [place] [] Incompetent to provide express and informed consent to voluntary admission, and this is incompetent to provide express and informed consent to treatment. The person must be transferred to involuntary status and a petition for a guardian advocate filed with the Circuit Court. [xxxx] Refusing to provide express and informed consent to voluntary admission but is competent to provide express and informed consent for treatment. The person must be discharged or transferred to involuntary status. Form shall be completed within 24 hours of a person's arrival at the receiving facility and filed in the clinical record of each person: 1. Admitted on a voluntary basis 2. Permitted to provide express and informed consent to his/her own treatment 3. Allowed to transfer from involuntary to voluntary status 4. Prior to permitting a person to consent to his or her own treatment after having been previously found incompetent to consent to treatment. History of Present Illness Capacity: Lacks capacity History of Present Illness: Patient is an 82-year-old white male well known to us from prior contact in April of this year. Comes here under Melgoza act by the [facility]'s office dated 05/20/2018 at 013 5 AM that document reviewed essentially is stating Roque was operating his vehicle on the wrong side of the roadway a traffic stop was conducted check appeared confused continuously repeating words was unable to provide friend/family information he stated several times the police were going to beat him up septic continue to mumble random statements his vehicle contained old food sitting on the center console all food in the back seat and trunk stefany attempted to walk away from deputies but was stopped he acted out as if he was being assaulted but then immediately began acting normal she had wanted to drive away stating that he wanted to just get coffee he repeated several he was just wanted coffee placed in protective custody he stated he was going to have a shaking problem but then began to act out by quivering his body patient was seen screen in the ED there is no urine toxicology done however the urine toxicology done on his admission in April 2018 was positive for marijuana. At the present time patient sitting quietly in his room medical student Leeann present throughout session. Patient did recognize me from her prior admission together. He shows some confusion and perhaps some mild confabulation as to what happened stating he was just getting coffee that he was on some training mission that justified him going on the wrong side of the road. 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 He lives by himself. He denies suicidality homicidality voices or visions. Remains in underlying confusion though he knows she is in [facility] he is in [facility] is May 2018. When I shared with him the possibility of him having some type for a TIA he agreed to further workup including a neuropsych assessment and MRI or CT. Patient diagnosed bipolar disorder is a hospitalized 5 or 6 times through his life. He is a client [facility] and does see Dr. Julio Oneill. At this time patient meets criteria for further inpatient psychiatric hospitalization under the Melgoza act I will do first opinion request second opinion. We will the hospitalist consult will us also and have neuropsych consult will us we will restart him on his Tegretol at 300 mg at at bedtime check blood level in couple of days. We also need to assess if possible with family members if they are available about discharge planning and placement - Inpatient Certification I certify that the inpatient services were ordered in accordance with Medicare regulations governing the order. This includes certification that hospital inpatient services are reasonable and necessary and in the case of services not specified as inpatient-only under 42 CFR 419.22(n), that they are appropriately provided as inpatient services in accordance to with the 2-midnight benchmark under 43 CFR 412.3(e) I certify that inpatient psychiatric hospital services are medically necessary. Evaluation and treatment and/or diagnostic testing are expected to improve the patient's condition. The patient needs on a daily basis, active treatment furnished directly by or requiring the supervision of inpatient psychiatric facility personnel. Estimated Total Length of Stay (Days): 5 Plans for Post Hospital Care: Not yet determined Review of Systems All other systems reviewed negative except as stated in HPI [facility] - History History Provided By: Patient - Medical History Medical History: Medical History (Last Reviewed 05/21/18 @ 10:24 by Benson Holcomb MD) GERD (gastroesophageal reflux disease) Hyperlipidemia Hypertension Seizure - Family History Family History: Family History (Last Reviewed 05/21/18 @ 10:24 by Benson Holcomb MD) Other Family history non-contributory Family history normal - Social History I have reviewed the patient's Social History: Yes - Tobacco History Second Hand Smoke Exposure: No Smoking Status: Never smoker Tobacco Type: Cigarettes - Alcohol History How Often Do You Have a Drink Containing Alcohol: Monthly or less - Substance Use History Substance History: Unable to Obtain - Travel History History of Recent Travel: No Recent Travel in the USA Within the Last 8 Weeks: No Recent Travel Out of the Country Within the Last 8 Weeks: No - Immunization History Tetanus Immunization: >5 Years Quality Measures - Psychiatric History Psychological trauma history: Patient denies Violence risk to others in the last 6 months: Low though there is a possibility of injury related to patient was driving on the wrong side of the street Violence risk to self in the last 6 months: Possibility of injury due to patient was driving on the wrong side of the street - Substance Abuse History Drug or alcohol use in the past 12 months: Patient and urine toxicology positive for marijuana in April of this year - Patient Strengths Patient's strengths (minimum of 2): Patient verbal able access healthcare Medications and Allergies Active Medications: Active Medications Acetaminophen (Tylenol) 650 mg PO Q4H PRN PRN Reason: Pain 1-5 or Temp >101F Al Hydrox/Mg Hydrox/Simethicone (Mag-Al Plus Susp Liq) 30 ml PO Q6H PRN PRN Reason: DYSPEPSIA Al Hydroxide/Mg Hydroxide (Milk Of Magnesia Liq) 30 ml PO Q12H PRN PRN Reason: Mild Constipation Carvedilol (Coreg) 12.5 mg PO BID [facility] Diphenhydramine HCl (Benadryl) 50 mg PO HS PRN PRN Reason: INSOMNIA Non-Formulary Medication (Carbamazepine [Carbamazepine]) 300 mg PO HS [facility] Senna/Docusate Sodium (Corine-Colace) 1 tab PO BID [facility] Last Admin: 05/21/18 08:46 Dose: Not Given Allergies Allergy/AdvReac Type Severity Reaction Status Date / Time mold Allergy Unknown UNKNOWN Verified 04/24/18 17:42 Home Medications Medication Instructions Recorded Confirmed Type nitroglycerin 0.4 mg SUBLINGUAL Q5-15M PRN 04/24/18 04/24/18 History zoster vaccine live (PF) [Zostavax 04/24/18 History (PF)] carbamazepine 300 mg PO HS 05/20/18 History Results - Labs CBC & Chem 7: 05/20/18 02:38 05/21/18 07:41 Labs: Laboratory Results - last 24 hr 05/21/18 07:41 Sodium 140 Potassium 3.9 Chloride 105 Carbon Dioxide 25.0 Anion Gap 10 BUN 13 Creatinine 0.88 Estimated GFR 83 L Random Glucose 86 Calcium 9.0 Triglycerides 112 Cholesterol 153 LDL Cholesterol, Calc 84 HDL Cholesterol 46.2 Cholesterol/HDL Ratio 3.31 Exam Vital signs: Vital Signs 05/20/18 16:20 05/21/18 05:55 Temperature 98.4 F 97.7 F Pulse Rate 98 H 82 Respiratory Rate 16 16 Blood Pressure 145/73 H 151/81 H Pulse Oximetry 94 L 94 L Intake & Output 05/20/18 05/21/18 05/21/18 18:59 06:59 18:59 Intake Total 360 / 360 580 / 580 Balance 360 / 360 580 / 580 Weight 88 kg Intake: Oral 360 / 360 480 / 480 Oral Supplement 100 / 100 Other: # Voids 2 Weight On Admission 88 kg Narrative: Patient sitting quietly in his room medical student Leeann present throughout session he is in no acute distress, he is in no respiratory distress, no complaints of chest pain or abdominal pain. Patient moving all 4 extremities without difficulty Mental Status Examination Appearance: Disheveled Consciousness: Alert Orientation: Person, Place, Date/Time Motor Activity: Normal gait Speech: Unremarkable Language: Perseveration Fund of Knowledge: Inadequate Attention and Concentration: Inadequate Memory: Impaired Mood: Other (Euthymic to somewhat irritable) Affect: Other (Slight decreased range and intensity) Thought Process & Associations: Loose associations Thought Content: Preoccupations (confused regarding his location) Hallucination Type: None Delusion Type: None Suicidal Ideation: No Suicidal Plan: No Suicidal Intention: No Homicidal Ideation: No Homicidal Plan: No Homicidal Intention: No Insight: Poor Judgment: Poor Assessment and Plan - Assessment (1) Bipolar I disorder, most recent episode mixed Code(s): F31.60 - Bipolar disorder, current episode mixed, unspecified Status : Acute - Plan Plan: Estimated LOS: [] days Patient remains somewhat delusional psychotic but appears she may be improving over his initial presentation to law enforcement. We will have hospitalist consult will us, will have neuropsychology consult will us we will restart him on his Tegretol Justification for Continued Inpatient Stay: At this time patient would decompensate a place to a lower level of care Discharge Planning: To be determined Request Healthcare Surrogate/Guardian Advocate?: No
--- NOTE | 2018-05-21 11:19 | P.CONIM ---
History of Present Illness Consult date: 05/21/18 Requesting Physician: Benson Holcomb Reason for Consult: Medical Management Primary Care Provider: UNKNOWN Family Provider: Dr. Spenser Khan History of Present Illness: Mr. Cardoza is an 82 y/o male with Bipolar disorder, CAD s/p CABG, Cardiomyopathy, HTN, hyperlipidemia, and chronic back pain. Pt was brought to the ED at [facility] on 05/20/18 under Melgoza Act by the [facility]'s office. The pt was reportedly operating his vehicle on the wrong side of the road and a traffic stop was conducted. According to ED and admitting documentation, the pt appeared confused, continuously repeating words and was unable to provide friend/family information. The pt reportedly stated several times the police were going to beat him up and he acted out as if he was being assaulted but then immediately began acting normal. When he was placed in protective custody he stated he was going to have a shaking problem but then began to act out by quivering his body. There is no urine toxicology done on this admission. His Tegretol level was 0.5 at admission. Past Medical Hx: Bipolar disorder CAD with hx of CABG Cardiomyopathy, EF 45% on echo in 2016 HTN Hyperlipidemia Lumbar radiculopathy Osteoarthritis ?Hx of seizures Past Surgical Hx: CABG in 1998 Vasectomy Family Hx: Noncontributory Social Hx: Hx of tobacco use, smoked a pipe and cigarettes ~10/day until age 54 Denies any alcohol use PMFSH - History History Provided By: Patient - Medical History Medical History: Medical History (Last Reviewed 05/21/18 @ 10:24 by Benson Holcomb MD) GERD (gastroesophageal reflux disease) Hyperlipidemia Hypertension Seizure - Family History Family History: Family History (Last Reviewed 05/21/18 @ 10:24 by Benson Holcomb MD) Other Family history non-contributory Family history normal - Tobacco History Second Hand Smoke Exposure: No Smoking Status: Never smoker Tobacco Type: Cigarettes - Alcohol History How Often Do You Have a Drink Containing Alcohol: Monthly or less - Substance Use History Substance History: Unable to Obtain - Substance Use Type Marijuana Status: Active Route Used: By Mouth Last Used: "a few days ago" Reason for Use: Feels Good Comment: Patient reports having drank alcohol in the past, but denies now. Patient states that he will "only smoke a cigarette when I don't have my pipe ( marijuana)". - Travel History History of Recent Travel: No Recent Travel in the [place] Within the Last 8 Weeks: No Recent Travel Out of the Country Within the Last 8 Weeks: No - Immunization History Tetanus Immunization: >5 Years Medications and Allergies Active Medications: Active Medications Acetaminophen (Tylenol) 650 mg PO Q4H PRN PRN Reason: Pain 1-5 or Temp >101F Al Hydrox/Mg Hydrox/Simethicone (Mag-Al Plus Susp Liq) 30 ml PO Q6H PRN PRN Reason: DYSPEPSIA Al Hydroxide/Mg Hydroxide (Milk Of Magnesia Liq) 30 ml PO Q12H PRN PRN Reason: Mild Constipation Al Hydroxide/Mg Hydroxide (Milk Of Magnesia Liq) 30 ml PO Q12H PRN PRN Reason: Mild Constipation Carbamazepine (Tegretol) 300 mg PO HS [facility] Carbamazepine (Tegretol) 200 mg PO DAILY [facility] Carvedilol (Coreg) 12.5 mg PO BID [facility] Cyanocobalamin (Vitamin B12) 1,000 mcg PO DAILY [facility] Diphenhydramine HCl (Benadryl) 50 mg PO HS PRN PRN Reason: INSOMNIA Hydroxyzine HCl (Atarax) 50 mg PO Q6H PRN PRN Reason: ANXIETY Lisinopril (Prinivil) 20 mg PO DAILY [facility] Miscellaneous (Pill Splitter) 1 each OTHER DAILY [facility] Pantoprazole Sodium (Protonix) 40 mg PO DAILY [facility] Senna/Docusate Sodium (Corine-Colace) 1 tab PO BID [facility] Last Admin: 05/21/18 08:46 Dose: Not Given Allergies Allergy/AdvReac Type Severity Reaction Status Date / Time mold Allergy Unknown UNKNOWN Verified 04/24/18 17:42 Home Medications Medication Instructions Recorded Confirmed Type nitroglycerin 0.4 mg SUBLINGUAL Q5-15M PRN 04/24/18 04/24/18 History zoster vaccine live (PF) [Zostavax 04/24/18 History (PF)] carbamazepine 300 mg PO HS 05/20/18 05/21/18 History carbamazepine 200 mg PO DAILY 05/21/18 05/21/18 History Exam Vital signs: Vital Signs 05/20/18 16:20 05/21/18 05:55 Temperature 98.4 F 97.7 F Pulse Rate 98 H 82 Respiratory Rate 16 16 Blood Pressure 145/73 H 151/81 H Pulse Oximetry 94 L 94 L Intake & Output 05/20/18 05/21/18 05/21/18 18:59 06:59 18:59 Intake Total 360 / 360 580 / 580 Balance 360 / 360 580 / 580 Weight 88 kg Intake: Oral 360 / 360 480 / 480 Oral Supplement 100 / 100 Other: # Voids 2 Weight On Admission 88 kg Results - Labs CBC & Chem 7: 05/20/18 02:38 05/21/18 07:41 Labs: Laboratory Results - last 24 hr 05/21/18 07:41 Sodium 140 Potassium 3.9 Chloride 105 Carbon Dioxide 25.0 Anion Gap 10 BUN 13 Creatinine 0.88 Estimated GFR 83 L Random Glucose 86 Calcium 9.0 Triglycerides 112 Cholesterol 153 LDL Cholesterol, Calc 84 HDL Cholesterol 46.2 Cholesterol/HDL Ratio 3.31
[2018-05-21] MEDS: carBAMazepine 200 MG Tablet PO SCH (12:58)
[2018-05-21 15:35] LABS: Hemoglobin A1c 6.3 % (4.3-6.0)
--- NOTE | 2018-05-21 15:36 | P.NPEVAL ---
Patient History - Record/History Review Reason for Referral: The patient is a 82 year old right handed man who was admitted to the Psychiatry Unit of [facility] on 05/20/2018 under Melgoza ACt after he was pulled over by the [employer]'s office for driving on the wrong side of the road and speaking incoherently. This patient has a prior psychiatric admission in April 2018. He has a history of Bipolar Disorder and is now delusional. He has a past medical history of CAD, s/p CABG, cardiomyopathy, hyperlipidemia and chronic back pain. The rest of his clinical history was unable to be obtained given his psychiatric condition. He is referred for baseline neurobehavioral status examination to assess cognitive, behavioral and emotional aspects of the injury and to provide treatment recommendations. [facility] - History History Provided By: Patient - Medical History Medical History: Medical History (Last Reviewed 05/21/18 @ 10:24 by Benson Holcomb MD) GERD (gastroesophageal reflux disease) Hyperlipidemia Hypertension Seizure - Family History Family History: Family History (Last Reviewed 05/21/18 @ 10:24 by Benson Holcomb MD) Other Family history non-contributory Family history normal - Tobacco History Second Hand Smoke Exposure: No Smoking Status: Never smoker Tobacco Type: Cigarettes - Alcohol History How Often Do You Have a Drink Containing Alcohol: Monthly or less - Substance Use History Substance History: Unable to Obtain - Substance Use Type Marijuana Status: Active Route Used: By Mouth Last Used: "a few days ago" Reason for Use: Feels Good Comment: Patient reports having drank alcohol in the past, but denies now. Patient states that he will "only smoke a cigarette when I don't have my pipe ( marijuana)". - Travel History History of Recent Travel: No Recent Travel in the [place] Within the Last 8 Weeks: No Recent Travel Out of the Country Within the Last 8 Weeks: No - Immunization History Tetanus Immunization: >5 Years Medications Active Medications Acetaminophen (Tylenol) 650 mg PO Q4H PRN PRN Reason: Pain 1-5 or Temp >101F Al Hydrox/Mg Hydrox/Simethicone (Mag-Al Plus Susp Liq) 30 ml PO Q6H PRN PRN Reason: DYSPEPSIA Al Hydroxide/Mg Hydroxide (Milk Of Magnesia Liq) 30 ml PO Q12H PRN PRN Reason: Mild Constipation Al Hydroxide/Mg Hydroxide (Milk Of Magnesia Liq) 30 ml PO Q12H PRN PRN Reason: Mild Constipation Carbamazepine (Tegretol) 300 mg PO HS [facility] Carbamazepine (Tegretol) 200 mg PO DAILY [facility] Last Admin: 05/21/18 12:58 Dose: 200 mg Carvedilol (Coreg) 12.5 mg PO BID [facility] Cyanocobalamin (Vitamin B12) 1,000 mcg PO DAILY [facility] Diphenhydramine HCl (Benadryl) 50 mg PO HS PRN PRN Reason: INSOMNIA Hydroxyzine HCl (Atarax) 50 mg PO Q6H PRN PRN Reason: ANXIETY Lisinopril (Prinivil) 20 mg PO DAILY [facility] Miscellaneous (Pill Splitter) 1 each OTHER DAILY [facility] Pantoprazole Sodium (Protonix) 40 mg PO DAILY [facility] Senna/Docusate Sodium (Corine-Colace) 1 tab PO BID [facility] Last Admin: 05/21/18 08:46 Dose: Not Given Mental Status Assessment - Mental Status Orientation: oriented to: Self, disoriented to: Place, Time, Situation Mental Status: Impaired: Thought processing, Language/interactions, Attention, Learning/memory, Problem-solving Present: Delusions Adjustment/Coping Assessment - Adjustment/Coping Adjustment/Coping: Severe: Awareness, Insight - Observation In terms of emotional functioning, the patient demonstrated significant challenges. This patient demonstrated signs of agitation when he was impeded from a goal, with significant disinhibition. There was significant evidence of a formal thought disorder and possible underlying psychosis. There was unclear evidence of depression or anxiety. Thought content was free from suicidal, homicidal or paranoid ideation, and thought processes were loose, perseverative , illogical and tangential. The patients mood was demanding, and his affect was intense. The patient appears to possess no insight and awareness into their situation and within the limits of this brief evaluation, very poor judgment. Behavior - Behavior Agitation: Moderate Treatment Engagement: No effort - Observation Behaviorally, the patient demonstrated signs of agitation and disinhibition. There was remarkable evidence of a formal thought disorder and possible underlying psychosis. - Goals LTG Status: Deferred STG Status: Deferred - Team Members Team Members: Neuropsychologist Diagnosis/Discharge Plan - Diagnosis (1) Bipolar I disorder, most recent episode mixed Status: Acute Impression: 82 year old male admitted to the Psychiatry Unit under Melgoza Act for incoherence and inability to care for himself after being found driving down the wrong side of the road. This patient is delusional and non compliant, and as such was unable to be formally evaluated. Nevertheless, I do opine that this patient's current neuropsychological state creates a situation where he lacks decision making capacity, and he is unable to manage without a structured environment. He may have an underlying major neurocognitive disorder, more likely than not cerebrovascular in origin, but at present his psychiatric conditions prevent that assessment. Maximizing Acute Care Outcome: At this point in time, it is my clinical opinion that this patient lacks decision making capacity, as he is unable to understand a situation and its likely consequences, nor is the patient able to manipulate information rationally. Cognitive capacity will be assessed throughout the recovery process. - Discharge Planning Anticipated Problems: Ongoing areas of concern will include behavioral impulsivity, lack of insight and judgment, which is expected to improve with time and treatment. His florid psychiatric condition prevents him from being a successful candidate for independent living. Treatment Plan: Today, this patient was unable to be reliably or validly evaluated, but if his florid delusional symptoms and non compliance improve, I would be happy to evaluate him. Neuroimaging would be beneficial too in order to corroborate any neuropsychological findings. Thank you for the opportunity to assist in this patients care. Mich Mistry, Ph.D., ABPP Board Certified in Clinical Neuropsychology [place] [employer] [place] Licensed Psychologist #[id number]
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
[2018-05-21] MEDS: Carvedilol 12.5 MG Tablet PO SCH (20:45)
[2018-05-21] MEDS ORDERED: carBAMazepine 200 MG Tablet PO SCH (21:00)
[2018-05-22] MEDS: Carvedilol 12.5 MG Tablet PO SCH ×2 (09:23→22:11)
[2018-05-22] MEDS: Senna/Docusate Sodium 8.6/50 MG Tablet PO SCH ×2 (09:23→22:11)
[2018-05-22] MEDS: Lisinopril 20 MG Tablet PO SCH (09:23)
[2018-05-22] MEDS: carBAMazepine 200 MG Tablet PO SCH ×2 (09:24→22:11)
--- NOTE | 2018-05-22 10:15 | CT ---
EXAM DATE: 05/22/2018 9:44 AM EDT AGE/SEX: 82 years / Male INDICATIONS: Altered mental status CLINICAL DATA: This is the patient's initial encounter. Patient reports that signs and symptoms have been present for 1 day and indicates a pain score of 0/10. MEDICAL/SURGICAL HISTORY: Gastroesophageal reflux disease. Hypertension. None. RADIATION DOSE: 38.47 CTDI (mGy) COMPARISON: No prior exams available for comparison. TECHNIQUE: CT of the head without contrast. Using automated exposure control and adjustment of the mA and/or kV according to patient size, radiation dose was kept as low as reasonably achievable to ob tain optimal diagnostic quality images. DICOM format image data is available electronically for revi ew and comparison. FINDINGS: Cerebrum: The ventricles are normal for age with moderate atrophic change with sulcal and ventricula r prominence. No evidence of midline shift, mass lesion, hemorrhage or acute infarction. No extraaxi al fluid collections are seen. Posterior Fossa: The cerebellum and brainstem are intact. The 4th ventricle is midline. The cerebe llopontine angle is unremarkable. Extracranial: The visualized portion of the orbits is intact. Skull: The calvaria is intact. No evidence of skull fracture. CONCLUSION: 1. No acute hemorrhage or mass effect. 2. Age-appropriate atrophic change. . Electronically signed by: Doe Tenorio MD 05/22/2018 10:14 AM EDT
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
[2018-05-23] MEDS: Carvedilol 12.5 MG Tablet PO SCH ×2 (11:10→20:35)
[2018-05-23] MEDS: Senna/Docusate Sodium 8.6/50 MG Tablet PO SCH ×2 (11:10→20:35)
[2018-05-23] MEDS: carBAMazepine 200 MG Tablet PO SCH ×3 (11:11→20:35)
[2018-05-23] MEDS: Lisinopril 20 MG Tablet PO SCH (11:11)
--- NOTE | 2018-05-23 12:57 | P.TTN ---
- Patient Problems Problems: 1. Discharge planning 2. Medication compliance 3. Knowledge deficit 4. Lack of coping skills - Progress Toward Goals Provider Present: Dr. Emiliano Holcomb, Dr. Abbey Posada Provider Input: 05/23/18: reports pt continues to meet psychiatric in-pt criteria. Tx on-going. Group Spec/RT/OT/KIRBY Input: 05/23: Pt has been attending ~ 75% of groups, he has been re-directed for inappropriate behavior and has been moved from [facility] to [facility] per these behaviors. Pt has been counseled about his behaviors. - Discharge Plan 05/23/18: No current d/c plan option, pt continues to respond to tx and has not reached baseline. - Documentation Teaching Recipient: Patient
--- NOTE | 2018-05-23 16:38 | P.PNPSY ---
Subjective Remarks: Tegretol level 5.4 on 05/22. Patient seen in his room with floor staff, napping in bed though arousable to alert and oriented appears somewhat calmer less intrusive speech showing less rapidity and pressure. Patient scheduled for [place] tomorrow. However will increase Tegretol in a.m. to 300 mg continue H's dose no change Review of Systems All other systems reviewed negative except as stated in HPI Mental Status Examination Appearance: Disheveled Consciousness: Alert Orientation: Person, Place, Date/Time Motor Activity: Normal gait Speech: Unremarkable Language: Perseveration Fund of Knowledge: Inadequate Attention and Concentration: Inadequate Memory: Impaired Mood: Other (Euthymic to somewhat irritable) Affect: Other (Slight decreased range and intensity) Thought Process & Associations: Loose associations Thought Content: Preoccupations (confused regarding his location) Hallucination Type: None Delusion Type: None Suicidal Ideation: No Suicidal Plan: No Suicidal Intention: No Homicidal Ideation: No Homicidal Plan: No Homicidal Intention: No Insight: Poor Judgment: Poor Assessment and Plan - Assessment (1) Bipolar disorder, current episode mixed, severe, with psychotic features Code(s): F31.64 - Bipolar disorder, current episode mixed, severe, with psychotic features Status: Acute - Plan Plan: Patient continues manic though softer, he is compliant with his medications. She medication adjustment above. Patient scheduled for [place] tomorrow Justification for Continued Inpatient Stay: At this time patient would decompensate a place to a lower level of care Discharge Planning: To be determined Request Healthcare Surrogate/Guardian Advocate?: No
[2018-05-24] MEDS: Carvedilol 12.5 MG Tablet PO SCH ×2 (08:06→20:32)
[2018-05-24] MEDS: carBAMazepine 200 MG Tablet PO SCH ×2 (08:06→20:34)
[2018-05-24] MEDS: Lisinopril 20 MG Tablet PO SCH (08:07)
[2018-05-24] MEDS: Senna/Docusate Sodium 8.6/50 MG Tablet PO SCH ×2 (08:07→20:32)
--- NOTE | 2018-05-24 16:20 | P.PNPSY ---
Subjective Remarks: Patient seen in [facility], retained by Cipriano rBoussard with [facility] as guardian advocate. Patient continues with no significant insight. His grandiosity and entitlement and manipulation are obvious along with his intelligence. He has been compliant with his medications for now continue treatment Review of Systems All other systems reviewed negative except as stated in HPI Mental Status Examination Appearance: Disheveled Consciousness: Alert Orientation: Person, Place, Date/Time Motor Activity: Normal gait Speech: Unremarkable Language: Perseveration Fund of Knowledge: Inadequate Attention and Concentration: Inadequate Memory: Impaired Mood: Other (Euthymic to somewhat irritable) Affect: Other (Slight decreased range and intensity) Thought Process & Associations: Loose associations Thought Content: Preoccupations (confused regarding his location) Hallucination Type: None Delusion Type: None Suicidal Ideation: No Suicidal Plan: No Suicidal Intention: No Homicidal Ideation: No Homicidal Plan: No Homicidal Intention: No Insight: Poor Judgment: Poor Assessment and Plan - Assessment (1) Bipolar disorder, current episode mixed, severe, with psychotic features Code(s): F31.64 - Bipolar disorder, current episode mixed, severe, with psychotic features Status: Acute - Plan Plan: Patient remains quite manic and somewhat psychotic with no insight. Retained by Cipriano Broussard continue treatment Justification for Continued Inpatient Stay: At this time patient would decompensate a place to a lower level of care Discharge Planning: To be determined Request Healthcare Surrogate/Guardian Advocate?: No
[2018-05-24] MEDS: Acetaminophen 325 MG Tablet PO PRN (22:42)
[2018-05-25] MEDS: Acetaminophen 325 MG Tablet PO PRN ×2 (03:39→23:49)
[2018-05-25] MEDS: Senna/Docusate Sodium 8.6/50 MG Tablet PO SCH ×3 (10:24→21:26)
[2018-05-25] MEDS: Carvedilol 12.5 MG Tablet PO SCH ×2 (10:24→21:22)
[2018-05-25] MEDS: carBAMazepine 200 MG Tablet PO SCH ×2 (10:25→21:22)
[2018-05-25] MEDS: Lisinopril 20 MG Tablet PO SCH (10:25)
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
[2018-05-26] MEDS: carBAMazepine 200 MG Tablet PO SCH ×2 (09:05→21:48)
[2018-05-26] MEDS: Lisinopril 20 MG Tablet PO SCH (09:06)
[2018-05-26] MEDS: Carvedilol 12.5 MG Tablet PO SCH ×2 (09:06→21:48)
[2018-05-26] MEDS: Senna/Docusate Sodium 8.6/50 MG Tablet PO SCH ×2 (09:07→21:48)
--- NOTE | 2018-05-26 18:16 | P.PNPSY ---
Subjective Remarks: Patient was seen and case discussed with nursing. Patient continues to show signs of pole or bhavani. Hyperactive, hyperverbal. He remains grandiose. Not sleeping well. He continues to find the incident of behaving like another doctor amusing. However, he is more redirectable per nursing and has not made any sexually inappropriate comments. Was walking around with no pants for a while today Mental Status Examination Appearance: Appropriate Consciousness: Alert Orientation: Person, Place, Date/Time Motor Activity: Normal gait Speech: Unremarkable Language: Perseveration Fund of Knowledge: Inadequate Attention and Concentration: Easily distracted Memory: Impaired Mood: Other (Elevated) Affect: Other (Slight decreased range and intensity) Thought Process & Associations: Disorganized Thought Content: Preoccupations (confused regarding his location) Hallucination Type: None Delusion Type: None Suicidal Ideation: No Suicidal Plan: No Suicidal Intention: No Homicidal Ideation: No Homicidal Plan: No Homicidal Intention: No Insight: Poor Judgment: Poor Assessment and Plan - Assessment (1) Bipolar disorder, current episode mixed, severe, with psychotic features Code(s): F31.64 - Bipolar disorder, current episode mixed, severe, with psychotic features Status: Acute - Plan Plan: Continue current treatment plan Justification for Continued Inpatient Stay: Patient would decompensate in a less restrictive setting Request Healthcare Surrogate/Guardian Advocate?: No
[2018-05-26] MEDS: Acetaminophen 325 MG Tablet PO PRN (20:23)
[2018-05-27] MEDS: Acetaminophen 325 MG Tablet PO PRN (01:16)
[2018-05-27] MEDS: Senna/Docusate Sodium 8.6/50 MG Tablet PO SCH ×2 (09:12→20:50)
[2018-05-27] MEDS: Carvedilol 12.5 MG Tablet PO SCH ×2 (09:13→20:49)
[2018-05-27] MEDS: Lisinopril 20 MG Tablet PO SCH (09:13)
[2018-05-27] MEDS: carBAMazepine 200 MG Tablet PO SCH ×2 (09:13→20:49)
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
[2018-05-28] MEDS: Acetaminophen 325 MG Tablet PO PRN (00:23)
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
--- NOTE | 2018-05-28 15:34 | P.PNPSY ---
Subjective Chief Complaint: "I believe I'm ready to leave" Remarks: Patient seen in his room with nurse Yuri and medical student [place], chart reviewed, patient compliant medication. Patient scheduled for Tegretol blood level tomorrow. Remains grandiose though his speech rate and rhythm has slowed there is some decrease in his pressure also. The grandiosity remains but is somewhat more soft. We have also talked to patient's son Joseluis at [phone]. He confirms his father's history of bhavani or grandiosity. He also confirms father's intelligence and that when he is on his medication he is stable and a "good will". He denies any significant alcohol or drug use with his father. He states that his mother patient's ex- is alive doing well and that they seem to have a good relationship. He also stated the patient's sister is coming down from [place] this week. We will attempt to reach her to include her in this process. For now continue treatment no change Review of Systems All other systems reviewed negative except as stated in HPI Mental Status Examination Appearance: Appropriate, Well dressed/well groomed Consciousness: Alert Orientation: Person, Place, Date/Time, Situation Motor Activity: Normal gait Speech: Unremarkable Language: Perseveration Fund of Knowledge: Inadequate Attention and Concentration: Easily distracted Memory: Impaired, Remote (intact) Mood: Other (Elevated) Affect: Other (Slight increased range and intensity) Thought Process & Associations: Disorganized Thought Content: Bizarre thinking (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), Preoccupations (confused regarding his situation, insists on getting out, wants to drive other patients home) Hallucination Type: None Delusion Type: None, Bizarre (secret agent, working on a musical) Suicidal Ideation: No Suicidal Plan: No Suicidal Intention: No Homicidal Ideation: No Homicidal Plan: No Homicidal Intention: No Insight: Poor Judgment: Poor Assessment and Plan - Assessment (1) Bipolar disorder, current episode mixed, severe, with psychotic features Code(s): F31.64 - Bipolar disorder, current episode mixed, severe, with psychotic features Status: Acute - Plan Plan: Patient continues manic grandiose though the range and intensity of his affect is softened somewhat. He is compliant with medications. We will recheck his Tegretol blood level over tomorrow Justification for Continued Inpatient Stay: At this time patient would decompensate a place to a lower level of care Discharge Planning: To be determined Request Healthcare Surrogate/Guardian Advocate?: No
[2018-05-28] MEDS: Carvedilol 12.5 MG Tablet PO SCH ×2 (17:50→20:30)
[2018-05-28] MEDS: carBAMazepine 200 MG Tablet PO SCH ×2 (17:51→20:29)
[2018-05-28] MEDS: Lisinopril 20 MG Tablet PO SCH (17:51)
[2018-05-28] MEDS: Senna/Docusate Sodium 8.6/50 MG Tablet PO SCH ×2 (17:51→20:29)
[2018-05-29] MEDS: Senna/Docusate Sodium 8.6/50 MG Tablet PO SCH ×2 (09:04→21:16)
[2018-05-29] MEDS: carBAMazepine 200 MG Tablet PO SCH ×2 (09:04→21:16)
[2018-05-29] MEDS: Lisinopril 20 MG Tablet PO SCH (09:04)
[2018-05-29] MEDS: Carvedilol 12.5 MG Tablet PO SCH ×2 (09:04→21:16)
--- NOTE | 2018-05-29 13:56 | P.PNPSY ---
Subjective Chief Complaint: "I believe I'm ready to leave" Remarks: Patient seen on 2600 unit with medical student [place], chart reviewed, patient compliant medications. Tegretol blood level drawn this a.m. is 9.4. We will continue dosing no change. Patient appears somewhat miffed by transfer down here from [facility]. However I feel the social interaction with this milieu will give us an opportunity to observe any improvement that he is showing with his interpersonal relationships and boundaries. 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 thinking (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), Preoccupations (confused regarding his situation, insists on getting out, wants to drive other patients home) Hallucination Type: None Delusion Type: None, Bizarre (Improving) Suicidal Ideation: No Suicidal Plan: No Suicidal Intention: No Homicidal Ideation: No Homicidal Plan: No Homicidal Intention: No Insight: Poor Judgment: Poor Assessment and Plan - Assessment (1) Bipolar disorder, current episode mixed, severe, with psychotic features Code(s): F31.64 - Bipolar disorder, current episode mixed, severe, with psychotic features Status: Acute - Plan Plan: Patient continues somewhat manic and grandiose but is improving, Tegretol level is now 9.4. For now continue treatment Justification for Continued Inpatient Stay: At this time patient would decompensate a place to a lower level of care Discharge Planning: To be determined Request Healthcare Surrogate/Guardian Advocate?: No
[2018-05-30] MEDS: Acetaminophen 325 MG Tablet PO PRN (02:19)
[2018-05-30] MEDS: Carvedilol 12.5 MG Tablet PO SCH ×3 (09:50→21:46)
[2018-05-30] MEDS: Senna/Docusate Sodium 8.6/50 MG Tablet PO SCH ×3 (09:50→21:46)
[2018-05-30] MEDS: carBAMazepine 200 MG Tablet PO SCH ×3 (09:51→21:46)
[2018-05-30] MEDS: Lisinopril 20 MG Tablet PO SCH ×2 (09:51→12:00)
--- NOTE | 2018-05-30 14:02 | P.PNPSY ---
Subjective Chief Complaint: "I believe I'm ready to leave" Remarks: Patient seen today in day room with nurse kelly, chart reviewed, patient initially refused all his medications today. Patient seen by me he is angry paranoid and frustrated with his continued stay here. I did explain that he is scheduled for [facility] tomorrow and he can testify to the beater dumper about his desire to be discharged. He was somewhat pessimistic related to that but then he agreed to take his medications for now continue treatment patient to [facility] tomorrow 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 thinking (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), Preoccupations (confused regarding his situation, insists on getting out, wants to drive other patients home) Hallucination Type: None Delusion Type: None, Bizarre (Improving) Suicidal Ideation: No Suicidal Plan: No Suicidal Intention: No Homicidal Ideation: No Homicidal Plan: No Homicidal Intention: No Insight: Poor Judgment: Poor Assessment and Plan - Assessment (1) Bipolar disorder, current episode mixed, severe, with psychotic features Code(s): F31.64 - Bipolar disorder, current episode mixed, severe, with psychotic features Status: Acute - Plan Plan: Patient remained somewhat manic vigilant intense and intrusive Justification for Continued Inpatient Stay: At this time patient would decompensate a place to a lower level of care Discharge Planning: To be determined Request Healthcare Surrogate/Guardian Advocate?: No
[2018-05-30 18:21] VITALS: O2SAT 98
[2018-05-31] MEDS: Acetaminophen 325 MG Tablet PO PRN (04:25)
[2018-05-31 06:20] VITALS: BP 179/84; PULSE 71; RESP 17; TEMP 97.6
--- NOTE | 2018-05-31 08:19 | P.TTN ---
- Patient Problems Problems: 1. Discharge planning 2. Medication compliance 3. Knowledge deficit 4. Lack of coping skills - Progress Toward Goals Provider Present: Dr. Emiliano Holcomb, Dr. Abbey Posada Provider Input: 05/30: Pt is scheduled for a rehearing in [place] tomorrow, compliant with meds, improvement in behavior. 05/23/18: reports pt continues to meet psychiatric in-pt criteria. Tx on-going. Psychiatric Counselors Present: ADAM Merlos Psychiatric Therapist Input: 05/30: Pt will DC home and sister will stay with him for a while until his son can stay with him Group Spec/RT/OT/KIRBY Present: KOFI Mays Group Spec/RT/OT/KIRBY Input: 05/30: Pt attends select groups, participates independently, social with peers, requires redirection at times. 05/23: Pt has been attending ~ 75% of groups, he has been re-directed for inappropriate behavior and has been moved from [address] [place] [address] to [facility] per these behaviors. Pt has been counseled about his behaviors. Clinical Coordinator: ADAM Garcia - Discharge Plan Other 05/30: 05/30: Pt will DC home and sister will stay with him for a while until his son can stay with him 05/23/18: No current d/c plan option, pt continues to respond to tx and has not reached baseline. - Documentation Scribe: Kathy KIRBY/L Teaching Recipient: Patient
[2018-05-31] MEDS: carBAMazepine 200 MG Tablet PO SCH (10:42)
[2018-05-31] MEDS: Senna/Docusate Sodium 8.6/50 MG Tablet PO SCH (10:43)
[2018-05-31] MEDS: Carvedilol 12.5 MG Tablet PO SCH (10:44)
[2018-05-31] MEDS: Lisinopril 20 MG Tablet PO SCH (10:44)
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
== END 2018-05-31 14:33 | disposition home or self-care (01) ==
LOC: NEDAMB 02:20 → NEDA 10:25 → H250 15:19 → H4EA 05-21 17:58 → H260 05-29 14:06
PROVIDERS: ADMIT Psychiatry & Neurology Psychiatry; ATTEND Psychiatry & Neurology Psychiatry